=== PATIENT | male | born 1995 | race Caucasian/White ===

== ENCOUNTER 2020-11-01 20:26 | Emergency (ER) | payer MEDICAID ==
[~2020-11-01 20:26] MED LIST: IBUP-1051 PO; NO HOME MEDS
== END 2020-11-01 21:00 | disposition left against medical advice (07) ==
LOC: ER 20:27
DX: M79.641 Pain in right hand (principal); M79.642 Pain in left hand; Z53.21 Procedure and treatment not carried out due to patient leaving prior to being seen by health care provider

== ENCOUNTER 2023-04-02 08:06 | Emergency (ER) | payer MEDICAID ==
[~2023-04-02] VITALS: Ht 182.9 cm; Wt 95.5 kg
[2023-04-02] MEDS ORDERED: ondansetron/PF 4mg/2ml inj IV ONE ×2 (08:30→13:20)
[2023-04-02] MEDS ORDERED: normal saline 1000ML IV soln IVB ONE (08:30)
[2023-04-02] MEDS ORDERED: pantoprazole 40 MG vial IV ONE (08:30)
[2023-04-02] MEDS ORDERED: pantoprazole 40MG/NS 100ML BAG 100 ML IV ONE (08:40)
--- NOTE | 2023-04-02 09:06 | NUR ---
PT GIVEN ZOFRAN. NO NAUSEA RELEIF. NOTIFIED DR GONZALES THAT PT SMOKES MARIJUANA. PER MD SHE WILL ORDER ATIVAN FOR PT.
[2023-04-02] MEDS ORDERED: LORazepam 2 mg/ml vial IV ONE ×2 (09:10→10:10)
[2023-04-02 09:18] LABS: ALANINE AMINOTRANSFERASE 16 U/L (12-78); ALBUMIN 4.8 G/DL (3.4-5.0); ALBUMIN/GLOBULIN RATIO 1.5 (1.1-1.5); ALKALINE PHOSPHATASE 67 IU/L (46-116); ANION GAP 12 (8-16); ASPARTATE AMINO TRANSFERASE 12 U/L (10-37); BILIRUBIN,TOTAL 0.8 MG/DL (0.1-1.0); BLOOD UREA NITROGEN 14 MG/DL (7-18); BUN/CREATININE RATIO 12.3 (10.0-20.0); CALCIUM 10.3 MG/DL (8.5-10.1); CHLORIDE 103 MMOL/L (99-107); CREATININE 1.14 MG/DL (0.60-1.10); GLUCOSE 118 MG/DL (70-104); POTASSIUM 3.5 MMOL/L (3.5-5.1); SODIUM 140 MMOL/L (135-145); TOTAL PROTEIN 7.9 G/DL (6.4-8.2); eCRCL 106 ML/MIN; eGFR 76 ML/MIN
[2023-04-02 09:27] LABS: LIPASE 36 U/L (16-77)
--- NOTE | 2023-04-02 09:41 | NUR ---
MOM AT BEDSIDE
[2023-04-02 09:45] LABS: BASOPHILS % (AUTO) 0.3 % (0-1); EOSINOPHILS % (AUTO) 0.1 % (0-6); HEMOGLOBIN 16.6 g/dl (14.0-17.9); LYMPHOCYTES # (AUTO) 0.7 X10'3 (1.1-4.8); LYMPHOCYTES % (AUTO) 7.1 % (21-51); MEAN CORPUSCULAR HEMOGLOBIN 31.3 PG (27.0-31.0); MEAN CORPUSCULAR HGB CONC 34.5 g/dL (33.0-36.5); MEAN CORPUSCULAR VOLUME 90.8 FL (78-98); MEAN PLATELET VOLUME 9.1 FL (7.4-10.4); MONOCYTES # (AUTO) 0.4 X10'3 (0-0.9); MONOCYTES % (AUTO) 3.9 % (2-12); NEUTROPHILS # (AUTO) 9.1 X10'3 (1.8-7.7); NEUTROPHILS % (AUTO) 88.6 % (42-75); PLATELET COUNT 259 X10'3 (140-440); RED BLOOD COUNT 5.32 X10'6 (4.70-6.10); RED CELL DISTRIBUTION WIDTH 13.5 % (11.5-14.5); WHITE BLOOD COUNT 10.2 X10'3 (4.5-11.0)
[2023-04-02 09:50] LABS: HEMATOCRIT 48.3 % (42.0-52.0)
[2023-04-02] MEDS ORDERED: proCHLORperazine 10 MG/2 ml inj IV ONE (10:10)
--- NOTE | 2023-04-02 11:10 | NUR ---
PT BP 99/42. DR GONZALES NOTIFIED AND AWARE. NO ORDERS AT THIS TIME.
--- NOTE | 2023-04-02 13:19 | NUR ---
PT FELT BETTER 10 MIN AGO, REPORTED TO NOW PT VOMITING AFTER PO CHALLENGE.
[2023-04-02] MEDS ORDERED: haloperidol lactate 5mg/ml inj IM ONE (14:05)
--- NOTE | 2023-04-02 14:43 | NUR ---
PT. MOTHERS PHONE NUMBER. [phone].
[2023-04-02] MEDS ORDERED: ONDA4TAB12 PO (15:43)
[2023-04-02 16:24] VITALS: BP 128/86; PULSE 69; RESP 16; O2SAT 99
[2023-04-02 16:29] VITALS: TEMP 97.2
== END 2023-04-02 16:33 | disposition home or self-care (01) ==
LOC: ER 08:06
DX: F11.10 Opioid abuse, uncomplicated (principal); F17.200 Nicotine dependence, unspecified, uncomplicated; F12.10 Cannabis abuse, uncomplicated; Z88.8 Allergy status to other drugs, medicaments and biological substances
CPT/HCPCS: 36415; 71045; 80053; 83690; 85025; 96365; 96372; 96375; 96376; 99285; C9113; J0780; J1630; J2060; J2405; J7030

== ENCOUNTER 2023-04-04 08:29 | Emergency (ER) | payer MEDICAID ==
[~2023-04-04] VITALS: Ht 182.9 cm; Wt 95.5 kg
[~2023-04-04 08:29] MED LIST changes: +ONDA4TAB12 PO
[2023-04-04 09:51] LABS: BASOPHILS % (AUTO) 0.3 % (0-1); EOSINOPHILS % (AUTO) 0 % (0-6); HEMOGLOBIN 15.4 g/dl (14.0-17.9); LYMPHOCYTES # (AUTO) 0.5 X10'3 (1.1-4.8); LYMPHOCYTES % (AUTO) 6.4 % (21-51); MEAN CORPUSCULAR HEMOGLOBIN 31.5 PG (27.0-31.0); MEAN CORPUSCULAR HGB CONC 34.2 g/dL (33.0-36.5); MEAN PLATELET VOLUME 8.6 FL (7.4-10.4); MONOCYTES # (AUTO) 0.2 X10'3 (0-0.9); MONOCYTES % (AUTO) 2.9 % (2-12); NEUTROPHILS # (AUTO) 7.6 X10'3 (1.8-7.7); NEUTROPHILS % (AUTO) 90.4 % (42-75); PLATELET COUNT 234 X10'3 (140-440); RED BLOOD COUNT 4.89 X10'6 (4.70-6.10); RED CELL DISTRIBUTION WIDTH 13.2 % (11.5-14.5); WHITE BLOOD COUNT 8.4 X10'3 (4.5-11.0)
[2023-04-04 10:07] LABS: ALANINE AMINOTRANSFERASE 21 U/L (12-78); ALBUMIN 4.5 G/DL (3.4-5.0); ALBUMIN/GLOBULIN RATIO 1.6 (1.1-1.5); ALKALINE PHOSPHATASE 60 IU/L (46-116); ANION GAP 10 (8-16); ASPARTATE AMINO TRANSFERASE 16 U/L (10-37); BILIRUBIN,TOTAL 0.7 MG/DL (0.1-1.0); BLOOD UREA NITROGEN 12 MG/DL (7-18); CALCIUM 9.3 MG/DL (8.5-10.1); CHLORIDE 104 MMOL/L (99-107); GLUCOSE 129 MG/DL (70-104); POTASSIUM 3.5 MMOL/L (3.5-5.1); SODIUM 140 MMOL/L (135-145); TOTAL CARBON DIOXIDE 26.3 MMOL/L (24-32); TOTAL PROTEIN 7.4 G/DL (6.4-8.2); eCRCL 121 ML/MIN; eGFR 89 ML/MIN
[2023-04-04 10:08] LABS: LIPASE 28 U/L (16-77)
[2023-04-04] MEDS ORDERED: ketorolac trometh. 30mg/ml inj. IV ONE (11:00)
[2023-04-04] MEDS ORDERED: mag hydrox/Alum hydrox/simeth 30ml oral suspension PO ONE (11:00)
[2023-04-04] MEDS ORDERED: LORazepam 2 mg/ml vial IV ONE (11:00)
[2023-04-04] MEDS ORDERED: LIDOcaine Viscous 15ml cup MM ONE (11:00)
[2023-04-04] MEDS ORDERED: pantoprazole 40 MG vial IV ONE (11:00)
[2023-04-04] MEDS ORDERED: normal saline 1000ML IV soln IVB ONE (11:00)
[2023-04-04] MEDS ORDERED: ondansetron/PF 4mg/2ml inj IV ONE (11:00)
[2023-04-04] MEDS ORDERED: pantoprazole 40MG/NS 100ML BAG 100 ML IV ONE (11:10)
[2023-04-04 12:00] LABS: MAGNESIUM 2.2 MG/DL (1.5-2.4)
[2023-04-04 12:22] LABS: ETHANOL < 10 MG/DL (<10)
[2023-04-04] MEDS ORDERED: iohexol 300mg/ml 100ml inj. ONE (12:45)
[2023-04-04 14:19] LABS: BILIRUBIN,URINE NEGATIVE (Neg); CLARITY,URINE CLEAR (Clear); COLOR,URINE YELLOW (Yellow); GLUCOSE, URINE NEGATIVE (Neg); KETONES,URINE NEGATIVE (Neg); LEUKOCYTE ESTERASE ,URINE NEGATIVE (Neg); NITRITES, URINE NEGATIVE (Neg); OCCULT BLOOD,URINE NEGATIVE (Neg); PH,URINE 7.5 (4.8-8.0); PROTEIN,URINE NEGATIVE (Neg); UROBILINOGEN,URINE 0.2 E.U/dL (0.2-1.0)
[2023-04-04 14:30] LABS: UA COLLECTION TYPE CLN CATCH MIDSTREAM
[2023-04-04] MEDS ORDERED: ONDA4TAB12 PO (14:33)
[2023-04-04] MEDS ORDERED: PANT-47 PO (14:33)
[2023-04-04 14:41] LABS: URINE AMPHETAMINE SCREEN NEGATIVE (Neg); URINE BARBITUATE SCREEN NEGATIVE (Neg); URINE BENZODIAZEPINES SCREEN NEGATIVE (Neg); URINE CANNABINOID SCREEN POSITIVE (Neg); URINE COCAINE SCREEN NEGATIVE (Neg); URINE OPIATE SCREEN NEGATIVE (Neg); URINE PHENCYCLIDINE SCREEN NEGATIVE (Neg)
[2023-04-04 15:24] VITALS: BP 113/73; PULSE 63; RESP 18; TEMP 98.4; O2SAT 98
== END 2023-04-04 15:28 | disposition home or self-care (01) ==
LOC: ER 08:30
DX: R11.10 Vomiting, unspecified (principal); R19.7 Diarrhea, unspecified
CPT/HCPCS: 36415; 71045; 74177; 80053; 80305; 80320; 81003; 83690; 83735; 84484; 85025; 93005; 96365; 96375; 99285; C9113; J1885; J2060; J2405; J3490; J7030; Q9967

== ENCOUNTER 2023-11-08 15:41 | Emergency (ER) | payer MEDICAID ==
[~2023-11-08] VITALS: Ht 182.9 cm; Wt 93.2 kg
[~2023-11-08 15:41] MED LIST changes: +PANT-47 PO
[2023-11-08 15:53] VITALS: BP 125/88; PULSE 51; RESP 16; TEMP 98.1; O2SAT 97
[2023-11-08 16:18] LABS: BASOPHILS % (AUTO) 0.2 % (0-1); EOSINOPHILS % (AUTO) 0 % (0-6); HEMATOCRIT 49.6 % (42.0-52.0); LYMPHOCYTES # (AUTO) 0.9 X10'3 (1.1-4.8); LYMPHOCYTES % (AUTO) 4.8 % (21-51); MEAN CORPUSCULAR HEMOGLOBIN 31.5 PG (27.0-31.0); MEAN CORPUSCULAR HGB CONC 34.3 g/dL (33.0-36.5); MEAN CORPUSCULAR VOLUME 91.9 FL (78-98); MEAN PLATELET VOLUME 8.5 FL (7.4-10.4); MONOCYTES # (AUTO) 0.6 X10'3 (0-0.9); MONOCYTES % (AUTO) 3.2 % (2-12); NEUTROPHILS # (AUTO) 16.6 X10'3 (1.8-7.7); NEUTROPHILS % (AUTO) 91.8 % (42-75); PLATELET COUNT 274 X10'3 (140-440); RED CELL DISTRIBUTION WIDTH 12.7 % (11.5-14.5); WHITE BLOOD COUNT 18.1 X10'3 (4.5-11.0)
[2023-11-08 16:35] LABS: ALANINE AMINOTRANSFERASE 18 U/L (12-78); ALBUMIN 5.2 G/DL (3.4-5.0); ALBUMIN/GLOBULIN RATIO 1.5 (1.1-1.5); ALKALINE PHOSPHATASE 58 IU/L (46-116); ANION GAP 13 (8-16); ASPARTATE AMINO TRANSFERASE 16 U/L (10-37); BILIRUBIN,TOTAL 1.3 MG/DL (0.1-1.0); BLOOD UREA NITROGEN 20 MG/DL (7-18); BUN/CREATININE RATIO 15.7 (10.0-20.0); CALCIUM 10.4 MG/DL (8.5-10.1); CHLORIDE 105 MMOL/L (99-107); CREATININE 1.27 MG/DL (0.60-1.10); GLUCOSE 130 MG/DL (70-104); LIPASE 20 U/L (16-77); POTASSIUM 4.1 MMOL/L (3.5-5.1); SODIUM 144 MMOL/L (135-145); TOTAL CARBON DIOXIDE 26.5 MMOL/L (24-32); TOTAL PROTEIN 8.6 G/DL (6.4-8.2); eCRCL 94 ML/MIN; eGFR 67 ML/MIN
[2023-11-09] MEDS ORDERED: ONDA4TAB12 PO (10:26)
[2023-11-09] MEDS ORDERED: PANT-47 PO (23:16)
[2023-11-09] MEDS ORDERED: PROC25SU2 RC (23:16)
== END 2023-11-09 00:22 | disposition left against medical advice (07) ==
LOC: ER 15:41
DX: R10.84 Generalized abdominal pain (principal); R11.10 Vomiting, unspecified; Z53.21 Procedure and treatment not carried out due to patient leaving prior to being seen by health care provider
CPT/HCPCS: 36415; 80053; 83690; 85025

== ENCOUNTER 2023-11-09 05:07 | Emergency (ER) | payer MEDICAID ==
[~2023-11-09] VITALS: Ht 185.4 cm; Wt 93.2 kg
[2023-11-09] MEDS ORDERED: pantoprazole 40mg IV 80 MG in normal saline 100ml IV soln 100 ML IV ONE (05:40)
[2023-11-09] MEDS: pantoprazole 40 MG vial IV ONE (06:09)
[2023-11-09] MEDS: normal saline 1000ML IV soln IV ONE (06:09)
[2023-11-09 06:12] LABS: BASOPHILS % (AUTO) 0.2 % (0-1); EOSINOPHILS % (AUTO) 0 % (0-6); HEMATOCRIT 49.7 % (42.0-52.0); HEMOGLOBIN 17.4 g/dl (14.0-17.9); LYMPHOCYTES % (AUTO) 6.6 % (21-51); MEAN CORPUSCULAR VOLUME 91.3 FL (78-98); MEAN PLATELET VOLUME 9.3 FL (7.4-10.4); MONOCYTES % (AUTO) 6.3 % (2-12); NEUTROPHILS # (AUTO) 13.6 X10'3 (1.8-7.7); NEUTROPHILS % (AUTO) 86.9 % (42-75); PLATELET COUNT 298 X10'3 (140-440); RED BLOOD COUNT 5.44 X10'6 (4.70-6.10); RED CELL DISTRIBUTION WIDTH 12.2 % (11.5-14.5); WHITE BLOOD COUNT 15.7 X10'3 (4.5-11.0)
[2023-11-09 06:21] LABS: APTT 24 SECONDS (22-32); INR 1.1 INR; PROTHROMBIN TIME 11.4 SECONDS (9.0-12.0)
[2023-11-09 06:24] LABS: ALANINE AMINOTRANSFERASE 21 U/L (12-78); ALBUMIN 5.5 G/DL (3.4-5.0); ALBUMIN/GLOBULIN RATIO 1.5 (1.1-1.5); ALKALINE PHOSPHATASE 58 IU/L (46-116); ANION GAP 17 (8-16); ASPARTATE AMINO TRANSFERASE 18 U/L (10-37); BILIRUBIN,TOTAL 1.5 MG/DL (0.1-1.0); BLOOD UREA NITROGEN 36 MG/DL (7-18); BUN/CREATININE RATIO 21.8 (10.0-20.0); CALCIUM 10.5 MG/DL (8.5-10.1); CHLORIDE 105 MMOL/L (99-107); CREATININE 1.65 MG/DL (0.60-1.10); ETHANOL < 10 MG/DL (<10); GLUCOSE 162 MG/DL (70-104); LIPASE 17 U/L (16-77); POTASSIUM 4.2 MMOL/L (3.5-5.1); SODIUM 146 MMOL/L (135-145); TOTAL CARBON DIOXIDE 23.7 MMOL/L (24-32); TOTAL PROTEIN 9.1 G/DL (6.4-8.2); eCRCL 75 ML/MIN; eGFR 50 ML/MIN
[2023-11-09] MEDS: normal saline 1000ML IV soln IVB ONE ×2 (08:17→11:03)
[2023-11-09] MEDS: haloperidol lactate 5mg/ml inj IM ONE (08:18)
[2023-11-09] MEDS: metoclopramide 5 mg/ml inj IV ONE (08:19)
[2023-11-09] MEDS: diphenhydrAMINE 50 mg/ml inj IV ONE (08:38)
[2023-11-09] MEDS: magnesium 2GM in 50ml NS 50 ML IV ONE (09:01)
[2023-11-09] MEDS ORDERED: ONDA4TAB12 PO (10:26)
[2023-11-09 11:40] LABS: BILIRUBIN,URINE SMALL (Neg); CLARITY,URINE CLOUDY (Clear); COLOR,URINE YELLOW (Yellow); GLUCOSE, URINE NEGATIVE (Neg); KETONES,URINE >=80 mg/dl (Neg); LEUKOCYTE ESTERASE ,URINE NEGATIVE (Neg); NITRITES, URINE NEGATIVE (Neg); OCCULT BLOOD,URINE NEGATIVE (Neg); PROTEIN,URINE NEGATIVE (Neg); UROBILINOGEN,URINE 0.2 E.U/dL (0.2-1.0)
[2023-11-09 11:43] LABS: UA COLLECTION TYPE NON-SPECIFIED
[2023-11-09 11:45] LABS: MUCUS STRANDS MANY /LPF (Neg)
[2023-11-09 11:46] LABS: HYALINE CASTS 0-3 /LPF (NEGATIVE); SQUAMOUS EPITHELIAL CELL,UR FEW /LPF (FEW)
[2023-11-09 11:47] LABS: BACTERIA,URINE FEW /HPF (Neg); RBC,URINE 0-2 /HPF (0-2); WBC,URINE 0-4 /HPF (0-4)
[2023-11-09 11:54] LABS: URINE AMPHETAMINE SCREEN NEGATIVE (Neg); URINE BARBITUATE SCREEN NEGATIVE (Neg); URINE BENZODIAZEPINES SCREEN NEGATIVE (Neg); URINE CANNABINOID SCREEN POSITIVE (Neg); URINE COCAINE SCREEN NEGATIVE (Neg); URINE METHADONE SCREEN NEGATIVE (Neg); URINE PHENCYCLIDINE SCREEN NEGATIVE (Neg)
[2023-11-09 12:25] VITALS: BP 114/69; PULSE 52; RESP 16; TEMP 98; O2SAT 99
[2023-11-09] MEDS ORDERED: PROC25SU2 RC (23:16)
[2023-11-09] MEDS ORDERED: PANT-47 PO (23:16)
== END 2023-11-09 12:29 | disposition home or self-care (01) ==
LOC: ER 05:08
DX: F12.10 Cannabis abuse, uncomplicated (principal); R11.10 Vomiting, unspecified; N18.9 Chronic kidney disease, unspecified; R25.2 Cramp and spasm; E86.0 Dehydration; Z91.018 Allergy to other foods
CPT/HCPCS: 36415; 71045; 80053; 80305; 80320; 81001; 83690; 85025; 85610; 85730; 86885; 86900; 86901; 93005; 96361; 96365; 96367; 96372; 96375; 99285; C9113; J1200; J1630; J2765; J3475; J7030

== ENCOUNTER 2023-11-09 21:56 | Emergency (ER) | payer MEDICAID ==
[~2023-11-09] VITALS: Ht 185.4 cm; Wt 95.0 kg
[2023-11-09 22:47] LABS: BASOPHILS % (AUTO) 0.2 % (0-1); EOSINOPHILS % (AUTO) 0.2 % (0-6); HEMATOCRIT 40.2 % (42.0-52.0); LYMPHOCYTES # (AUTO) 1.5 X10'3 (1.1-4.8); LYMPHOCYTES % (AUTO) 12.5 % (21-51); MEAN CORPUSCULAR HEMOGLOBIN 31.9 PG (27.0-31.0); MEAN CORPUSCULAR HGB CONC 34.8 g/dL (33.0-36.5); MEAN CORPUSCULAR VOLUME 91.5 FL (78-98); MEAN PLATELET VOLUME 8.5 FL (7.4-10.4); MONOCYTES # (AUTO) 0.9 X10'3 (0-0.9); MONOCYTES % (AUTO) 7.5 % (2-12); NEUTROPHILS # (AUTO) 9.3 X10'3 (1.8-7.7); NEUTROPHILS % (AUTO) 79.6 % (42-75); PLATELET COUNT 192 X10'3 (140-440); RED BLOOD COUNT 4.39 X10'6 (4.70-6.10); RED CELL DISTRIBUTION WIDTH 12.6 % (11.5-14.5); WHITE BLOOD COUNT 11.7 X10'3 (4.5-11.0)
[2023-11-09] MEDS: haloperidol lactate 5mg/ml inj IM ONE (22:47)
[2023-11-09] MEDS: ringers solution, lacted 1,000 ML IV ONE (22:47)
[2023-11-09] MEDS: diphenhydrAMINE 50 mg/ml inj IV ONE (22:48)
[2023-11-09 22:54] LABS: ALANINE AMINOTRANSFERASE 26 U/L (12-78); ALBUMIN/GLOBULIN RATIO 1.4 (1.1-1.5); ALKALINE PHOSPHATASE 42 IU/L (46-116); ANION GAP 9 (8-16); ASPARTATE AMINO TRANSFERASE 19 U/L (10-37); BLOOD UREA NITROGEN 24 MG/DL (7-18); BUN/CREATININE RATIO 23.1 (10.0-20.0); CALCIUM 8.2 MG/DL (8.5-10.1); CHLORIDE 112 MMOL/L (99-107); CREATININE 1.04 MG/DL (0.60-1.10); GLUCOSE 112 MG/DL (70-104); LIPASE 22 U/L (16-77); POTASSIUM 3.8 MMOL/L (3.5-5.1); SODIUM 146 MMOL/L (135-145); TOTAL CARBON DIOXIDE 25.3 MMOL/L (24-32); TOTAL PROTEIN 6.8 G/DL (6.4-8.2); eCRCL 118 ML/MIN; eGFR 84 ML/MIN
[2023-11-09] MEDS ORDERED: PROC25SU2 RC (23:16)
[2023-11-09] MEDS ORDERED: PANT-47 PO (23:16)
[2023-11-10] MEDS: LIDOcaine 2% Viscous 15ml cup MM ONE (00:03)
[2023-11-10] MEDS: pantoprazole 40 MG vial IV SCH (00:03)
[2023-11-10] MEDS: mag hydrox/Alum hydrox/simeth 30ml oral suspension PO ONE (00:03)
[2023-11-10 00:08] VITALS: BP 146/77; PULSE 83; RESP 14; TEMP 98.7; O2SAT 98
== END 2023-11-10 00:22 | disposition home or self-care (01) ==
LOC: ER 21:57
DX: K29.00 Acute gastritis without bleeding (principal); R11.2 Nausea with vomiting, unspecified; Z91.048 Other nonmedicinal substance allergy status; F12.90 Cannabis use, unspecified, uncomplicated; Z91.040 Latex allergy status; Z79.899 Other long term (current) drug therapy
CPT/HCPCS: 36415; 80053; 83690; 85025; 93005; 96361; 96372; 96374; 96375; 99284; C9113; J1200; J1630; J7120

== ENCOUNTER 2023-11-14 09:22 | Emergency (ER) | payer MEDICAID ==
[~2023-11-14] VITALS: Ht 185.4 cm; Wt 86.4 kg
[~2023-11-14 09:22] MED LIST changes: -IBUP-1051 PO; -NO HOME MEDS; +PROC25SU2 RC
[2023-11-14 09:32] VITALS: BP 159/82; PULSE 71; RESP 18; TEMP 98.3; O2SAT 95
== END 2023-11-14 13:04 | disposition left against medical advice (07) ==
LOC: ER 09:22
DX: R10.84 Generalized abdominal pain (principal); K92.0 Hematemesis; Z53.21 Procedure and treatment not carried out due to patient leaving prior to being seen by health care provider